=== PATIENT | male | born 1995 | race Caucasian/White ===

== ENCOUNTER 2020-05-31 11:26 | Emergency (ER) | payer OTHER ==
[~2020-05-31] VITALS: Ht 154.9 cm; Wt 59.0 kg
[2020-05-31] MEDS ORDERED: LIDOCAINE 1% INJ 50 ML MDV IJ ONE (12:00)
--- NOTE | 2020-05-31 14:04 | NUR ---
Patient discharged to home in stable condition. Written and verbal after care instructions given. Patient verbalizes understanding of instruction. Pt ambulatory with a steady gait
[2020-05-31 14:05] VITALS: BP 112/77
== END 2020-05-31 14:05 | disposition home or self-care (01) ==
LOC: ER 11:31
DX: L02.31 Cutaneous abscess of buttock (principal)
CPT/HCPCS: 10060; 76882; 99284; A6403; A6407; J3490

== ENCOUNTER 2020-06-02 14:26 | Emergency (ER) | payer OTHER ==
[~2020-06-02] VITALS: Ht 167.6 cm; Wt 52.2 kg
[2020-06-02 15:34] VITALS: BP 125/66
== END 2020-06-02 16:59 | disposition home or self-care (01) ==
LOC: ER 14:46
DX: L02.31 Cutaneous abscess of buttock (principal)